=== PATIENT | male | born 1955 | race Caucasian/White ===

== ENCOUNTER → 2017-08-17 | Outpatient (CLI) | payer OTHER ==
[~2017-08-17] MED LIST: ALL300 PO; CA C1TAB99 PO; DICL-195 PO; FAM20 PO; FEN145 PO; FLU45SYR17 IM; LEVO50TA86 PO; LOR1 PO; PRE20 PO; PROC-35 PO; PYRI100T57 PO; ROSU20TA23 PO; SIMV-44 PO; SIMV-54 PO; TADA20TA33 PO; VARD10TA20 PO
== END ==
LOC: LAB 10:34
PROVIDERS: ATTEND Internal Medicine Hematology
DX: C85.90 Non-Hodgkin lymphoma, unspecified, unspecified site (principal)
CPT/HCPCS: 36415; 82040; 82247; 82310; 82374; 82435; 82565; 82947; 83615; 84075; 84132; 84155; 84295; 84450; 84460; 84520; 84550; 85027

== ENCOUNTER 2017-08-23 08:28 | Outpatient (RCR) | payer OTHER ==
[2017-08-23 08:38] VITALS: BP 117/73
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
== END 2017-09-05 15:33 | disposition home or self-care (01) ==
LOC: ONC 08:28
PROVIDERS: ATTEND Internal Medicine Hematology
DX: C83.38 Diffuse large B-cell lymphoma, lymph nodes of multiple sites (principal); Z92.3 Personal history of irradiation; Z92.21 Personal history of antineoplastic chemotherapy; G62.0 Drug-induced polyneuropathy; E78.00 Pure hypercholesterolemia, unspecified
CPT/HCPCS: 99212

== ENCOUNTER → 2018-04-30 | Outpatient (CLI) | payer OTHER ==
[2018-04-30 08:43] LABS: PLATELET COUNT, AUTOMATED 265 K/uL (150-450)
[2018-04-30 09:14] LABS: LDL CHOLESTEROL 51 mg/dl
== END ==
LOC: LAB 08:25
PROVIDERS: ATTEND Internal Medicine
DX: C85.90 Non-Hodgkin lymphoma, unspecified, unspecified site (principal); R79.89 Other specified abnormal findings of blood chemistry; E03.9 Hypothyroidism, unspecified; E78.5 Hyperlipidemia, unspecified
CPT/HCPCS: 36415; 81001; 82040; 82247; 82310; 82374; 82435; 82465; 82565; 82947; 83718; 84075; 84132; 84155; 84295; 84439; 84443; 84450; 84460; 84478; 84520; 85025

== ENCOUNTER → 2018-05-21 | Outpatient (CLI) | payer OTHER ==
--- NOTE | 2018-05-21 09:51 | RADIOLOGY IMAGING REPORT ---
FACILITY: [facility] PATIENT NAME: Jered Borja : 1955 MR: [id number] V: [id number] EXAM DATE: ORDERING PHYSICIAN: FOSTER BROCK TECHNOLOGIST: [place] [facility] [place] Jered Borja : 1955 Visit/Account:[id number] Date of Sevice: 05/21/2018 Exam type: SOFT TISSUE NON-SPECIFIC History: mass in left axilla, history of non-Hodgkin's lymphoma Comparison: None. Findings: Numerous images were obtained in the left axilla demonstrating no evidence of abnormal left axillary mass and no demonstration of lymph nodes. IMPRESSION: No abnormality of the left axilla was demonstrated sonographically Report Dictated By: Rita Obrien MD at 05/21/2018 9:45 AM Report E-Signed By: Rita Obrien MD at 05/21/2018 9:48 AM WSN:[email or web address]
--- NOTE | 2018-05-21 10:53 | RADIOLOGY IMAGING REPORT ---
FACILITY: [facility] - [place] PATIENT NAME: Jered Borja : 1955 MR: [id number] V: [id number] EXAM DATE: ORDERING PHYSICIAN: FOSTER BROCK TECHNOLOGIST: Location: [facility] Patient: Jered Borja : 1955 Visit/Account:[id number] Date of Sevice: 05/21/2018 LIVER HISTORY: Elevated LFTs, history of non-Hodgkin's lymphoma COMPARISON: None. FINDINGS: Gallbladder: Unremarkable; no stones or sludge. Liver: There is increased echogenicity throughout liver which can be seen with fatty infiltration oth er infiltrative process Common duct: Normal, 2.2 mm diameter. Pancreas: Partially obscured by bowel, visualized aspects unremarkable. Right kidney: Right kidney appears unremarkable measuring 10.7 cm in length Upper abdominal aorta and IVC: Patent. Ascites: None visualized. IMPRESSION: Increased echogenicity throughout liver which can be seen with fatty infiltration or other infiltrati ve process. Report Dictated By: Rita Obrien MD at 05/21/2018 9:48 AM Report E-Signed By: Rita Obrien MD at 05/21/2018 10:49 AM WSN:[email or web address]
== END ==
LOC: US 05-20 04:51
PROVIDERS: ATTEND Internal Medicine
DX: R79.89 Other specified abnormal findings of blood chemistry (principal); R22.32 Localized swelling, mass and lump, left upper limb; C85.90 Non-Hodgkin lymphoma, unspecified, unspecified site
CPT/HCPCS: 76705; 76999

== ENCOUNTER → 2018-08-27 | Outpatient (CLI) | payer OTHER ==
[~2018-08-27] MED LIST changes: -ROSU20TA23 PO; +ROSU20TA24 PO
[2018-08-27 13:18] LABS: PLATELET COUNT, AUTOMATED 277 K/uL (150-450)
== END ==
LOC: LAB 12:54
PROVIDERS: ATTEND Internal Medicine Hematology
DX: C85.80 Other specified types of non-Hodgkin lymphoma, unspecified site (principal)
CPT/HCPCS: 36415; 82040; 82247; 82310; 82374; 82435; 82565; 82947; 83615; 84075; 84132; 84155; 84295; 84450; 84460; 84520; 84550; 85027

== ENCOUNTER 2018-08-29 12:25 | Outpatient (RCR) | payer OTHER ==
[2018-08-29 12:30] VITALS: BP 114/68
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
== END 2018-10-02 08:59 | disposition home or self-care (01) ==
LOC: ONC 12:25
PROVIDERS: ATTEND Internal Medicine Hematology
DX: Z85.72 Personal history of non-Hodgkin lymphomas (principal); Z92.21 Personal history of antineoplastic chemotherapy; Z92.3 Personal history of irradiation; G62.0 Drug-induced polyneuropathy
CPT/HCPCS: 99212